=== PATIENT | male | born 1980 ===

== ENCOUNTER 2022-03-21 09:40 | Emergency (ER) | payer SELFPAY ==
[~2022-03-21] VITALS: Ht 188 cm; Wt 76.9 kg
[2022-03-21 09:41] VITALS: BP 123/70
== END 2022-03-21 12:35 | disposition left against medical advice (07) ==
LOC: M ED 09:40
DX: Z53.21 Procedure and treatment not carried out due to patient leaving prior to being seen by health care provider (principal)